=== PATIENT | female | born 2000 | race Two or more races ===

== ENCOUNTER 2018-12-18 11:57 | Emergency (ER) | payer MEDICAID ==
[~2018-12-18] VITALS: Ht 162.6 cm; Wt 54.0 kg
[2018-12-18 12:32] VITALS: BP 113/69
== END 2018-12-18 12:56 | disposition home or self-care (01) ==
LOC: ER 11:57
DX: O26.891 Other specified pregnancy related conditions, first trimester (principal); J02.9 Acute pharyngitis, unspecified; Z3A.14 14 weeks gestation of pregnancy

== ENCOUNTER 2019-03-31 17:05 | Observation (INO) | payer MEDICAID | END 2019-03-31 19:40 | disposition home or self-care (01) | DRG 566 | LOC: LDRP 17:05 | PROVIDERS: ADMIT Specialist; ATTEND Specialist | DX: O36.8120 Decreased fetal movements, second trimester, not applicable or unspecified (principal); Z3A.26 26 weeks gestation of pregnancy | CPT/HCPCS: 59025; 76815; 81002; G0378 ==

== ENCOUNTER 2019-09-21 18:51 | Emergency (ER) | payer MEDICAID ==
[~2019-09-21] VITALS: Ht 152.4 cm; Wt 54.4 kg
[2019-09-21 20:17] VITALS: BP 114/74
== END 2019-09-21 20:54 | disposition home or self-care (01) ==
LOC: ER 18:53
DX: J06.9 Acute upper respiratory infection, unspecified (principal)

== ENCOUNTER 2023-01-16 15:05 | Emergency (ER) | payer MEDICAID ==
[~2023-01-16] VITALS: Ht 165.1 cm; Wt 67.5 kg
[2023-01-16 15:18] VITALS: BP 112/75
[2023-01-16 16:49] LABS: Basophils # (auto) 0 10 ^3/uL (0-0.2); Basophils % (auto) 0.6 % (0.0-2.0); Eosinophils # (auto) 0.1 10 ^3/uL (0-0.8); Eosinophils % (auto) 0.9 % (0.0-7.0); Hematocrit 41.4 % (36.0-46.0); Hemoglobin 13.9 g/dL (12.2-16.2); Lymphocytes % (auto) 13.8 % (10.0-50.0); Mean Corpuscular Hemoglobin 29.8 pg (28.0-32.0); Mean Corpuscular Hgb Conc. 33.5 g/dL (32.0-36.0); Mean Corpuscular Volume 88.9 fL (80.0-100.0); Monocytes # (auto) 0.2 10 ^3/uL (0-1.3); Monocytes % (auto) 3.3 % (0.0-12.0); Neutrophils # (auto) 5.7 10 ^3/uL (1.6-8.6); Neutrophils % (auto) 81.4 % (37.0-80.0); Red Blood Cells 4.66 10^6/uL (4.0-5.20)
[2023-01-16 17:16] LABS: Albumin 4.5 g/dL (3.4-5.0); Calcium 9.6 mg/dL (8.5-10.1); Potassium 3.9 mmol/L (3.5-5.1)
[2023-01-16 17:19] LABS: BUN/Creatinine Ratio 20.6 (10.0-20.0); Bilirubin, Total 0.5 mg/dL (0.2-1.0); Total Protein 8.2 g/dL (6.4-8.2)
[2023-01-16] MEDS ORDERED: HYDROcodone-ACET 5/325MG TAB PO ONE (17:45)
[2023-01-16] MEDS ORDERED: DexAMETHasone SOD PHOS 10MG/1ML VIAL INJ IM ONE (17:45)
[2023-01-16] MEDS ORDERED: ONDANSETRON ODT 4 MG TAB PO ONE (17:45)
[2023-01-16] MEDS ORDERED: ONDA-144 PO (17:54)
[2023-01-16] MEDS ORDERED: PRED20TA2 PO (17:54)
[2023-01-16] MEDS ORDERED: FLUT1SPR5 (17:54)
[2023-01-16] MEDS ORDERED: IBU600T PO (17:54)
== END 2023-01-16 18:18 | disposition home or self-care (01) ==
LOC: ER 15:05
DX: R51.9 Headache, unspecified (principal); J32.9 Chronic sinusitis, unspecified
CPT/HCPCS: 36415; 70450; 80053; 81002; 85025; 96372; 99285; J1100; Q0162